=== PATIENT | male | born 1980 | race African-American/Black ===

== ENCOUNTER 2020-03-27 08:19 | Emergency (ER) | payer MEDICAID, OTHER ==
[~2020-03-27] VITALS: Ht 160 cm; Wt 90.7 kg
[2020-03-27 08:30] VITALS: BP 141/85
== END 2020-03-27 09:34 ==
LOC: ER 08:19
DX: H11.32 Conjunctival hemorrhage, left eye (principal); V49.3XXA Car occupant (driver) (passenger) injured in unspecified nontraffic accident, initial encounter; Y93.89 Activity, other specified; Y92.89 Other specified places as the place of occurrence of the external cause; Y99.8 Other external cause status